=== PATIENT | male | born 1940 | race Caucasian/White ===

== ENCOUNTER 2019-10-22 12:30 | Outpatient (RCR) | payer MEDICARE, SELFPAY ==
--- NOTE | 2019-09-26 15:42 | PTOPEVAL ---
INITIAL PHYSICAL THERAPY EVALUATION and PLAN OF CARE Thank you for referring Toñito to [facility]. He will be seen in PT 2x/wk x 4 wks. Please review, sign, date and return this plan of care RADHA. I agree with and certify that the following plan of care is medically necessary. Referring Physician Date Admitting Provider: Attending Provider: Geo Najera, Referring Provider: *PT Outpatient Evaluation Start: 09/26/19 12:34 Freq: Status: Active Protocol: Document 09/26/19 12:34 SARAH (Rec: 09/26/19 13:55 SARAH [email or web address]) Therapy Assessment Status Assessment Status Assessment Status Evaluation Outpatient Past Medical History Neurological History Hx Neurological Disorders No Significant History Cardiovascular History Hx Hypertension Yes Respiratory History Hx Respiratory Disorders No Significant History Gastrointestinal History Hx Gastrointestinal Disorders No Significant History Genitourinary History Hx Renal Disease Yes: stage IV Hx Other Genitourinary Disorders Yes: takes med for bladder control Musculoskeletal History Hx Back Pain Yes Endocrine History Hx Endocrine Disorders No Significant History HEENT History Hx Cataracts Yes Other History Hx Other Surgeries Yes: bilat hernia surgeries Evaluation Information Problem Diagnosis lumbar stenosis Onset worsened last 6 months Subjective Information has had back issues x 20 years Query Text:As Reported By Patient/ - recently began to have leg Family symptoms. When up on feet doesn't feel steady - will feel like he could fall forward or backwards. Uses cane for stability. Sleeping - needs to wear wool socks and gloves for hands to keep them warm - sleeps better. Mornings - hard to get up, takes 1/2 hour to loosen up - does better as day goes on. Sitting for a period of time - 2-3 hours - hard to move afterwards. Standing - without a cane - 10-15 min - with cane - for awhile - needs to be leaning against something. Prior Level of Function Activity Level (Last 3 Months) Occupation retired Hand Dominance Right Medications Home Meds (Include: OTC, RX, Vitamins, myrbetriq, allopurinol,
--- NOTE | 2019-10-22 15:11 | PTOPEVAL ---
PHYSICAL THERAPY DISCHARGE NOTE Thank you for referring Toñito to [facility]. He has attended 8 treatments, progression was made towards goals set, and he is ready to transition to HEP. I agree with Toñito's discharge from physical therapy. Referring Physician Date Admitting Provider: Attending Provider: Geo Najera, MD Referring Provider: *PT Outpatient Evaluation Start: 09/26/19 12:34 Freq: Status: Active Protocol: Document 10/22/19 12:30 SARAH (Rec: 10/22/19 15:11 SARAH [email or web address]) Therapy Assessment Status Assessment Status Assessment Status Discharge Evaluation Information Problem Subjective Information Toñito reports that he still Query Text:As Reported By Patient/ has some discomfort with his Family knees but episode of increased pain after ex on 10/15/19 has gone away. He reports doing HEP. He is able to tell the increased strength in L LE. Pain Assessment Timing of Pain Assessment Timing of Pain Assessment Assessment Pain Scale Pain Scale Used Numeric (1 - 10) Self Report Pain Assessment Lower Posterior Back Reported Pain Level 0 Radicular Pain Location pins and needle sensation in feet in still present-has been there x 3 years Current Pain Intensity 0 Lowest Pain Intensity 0 Greatest Pain Intensity 5 Pain Score Pain Score 0: Self Report Cervical and Lumbar ROM Lumbar ROM Lumbar Flexion (0-90) 35 Query Text:Active in Degrees Lumbar Extension (0-40) 10 Query Text:Active in Degrees Lumbar Lateral Flexion Right (0-40) 10 Query Text:Active in Degrees Lumbar Lateral Flexion Left (0-40) 10 Query Text:Active in Degrees Lower Extremity Muscle Strength Testing General Lower Extremity Strength Gross Lower Extremity Strength hip flexor strength - 3+/5 bilat anterior tibialis - L 4/5 R 3+/5 peroneals - L 4/5 R 3+/5 Muscle Length Testing Muscle Length Testing Left Hamstring Length -43 Query Text:(90 - 90 Position) Right Hamstring Length -44 Query Text:(90 - 90 Position) Balance Assessment Time Up Go (TUG) Assistive Devices None Comments 21.47 sec 5 Time Sit to Stand Time in Seconds 26.40 5 Time Sit to Stand Comments use of hands required although Query Text:Normative Data: If Greater he tried to minimize how much Than 15 Seconds, 74% Increase Risk for he used his hands Recurrent Falls
== END 2019-10-23 11:31 | disposition home or self-care (01) ==
LOC: ANHHIPT 12:30
PROVIDERS: PCP Internal Medicine; Visit Provider Internal Medicine
DX: M48.00 Spinal stenosis, site unspecified (principal)
CPT/HCPCS: 97110; 97140; 97162

== ENCOUNTER 2020-05-16 10:00 | Outpatient (RCR) | payer MEDICARE, SELFPAY ==
--- NOTE | 2020-05-02 12:13 | PTOPEVAL ---
INITIAL PHYSICAL THERAPY EVALUATION and PLAN OF CARE Thank you for referring Toñito Valdes to [facility].? Toñito is scheduled to be seen for physical therapy? 2x/week for 4 weeks. Please review, sign, date and return this plan of care RADHA. I agree with and certify that the following plan of care is medically necessary. Referring Physician Date Admitting Provider: Attending Provider: Geo Najera, Referring Provider: *PT Outpatient Evaluation Start: 05/02/20 10:39 Freq: Status: Active Protocol: Document 05/02/20 10:40 SARAH (Rec: 05/02/20 12:02 SARAH [email or web address]) Therapy Assessment Status Assessment Status Assessment Status Evaluation Outpatient Past Medical History Past Medical History Source of Past Medical History Recalled from Previous Visit, Confirmed with Patient/Family Neurological History Hx Other Neurological Disorders Yes: bilat foot neuropathies Cardiovascular History Hx Hypertension Yes Respiratory History Hx Respiratory Disorders No Significant History Gastrointestinal History Hx Gastrointestinal Disorders No Significant History Genitourinary History Hx Renal Disease Yes: stage IV - peritoneal dialysis now Hx Other Genitourinary Disorders Yes: takes med for bladder control Musculoskeletal History Hx Back Pain Yes Endocrine History Hx Endocrine Disorders No Significant History HEENT History Hx Cataracts Yes: had surgery Other History Hx Other Medical Conditions Yes: Raynauds - both hands Hx Other Surgeries Yes: bilat hernia surgeries Evaluation Information Problem Diagnosis LBP Onset long standing - worse since February 2020 Subjective Information Will have increased back pain Query Text:As Reported By Patient/ - shooting pain, will travel Family around the lower back. Can happen at any time. Last few days pain hasn't been as bad. Pain will travel into R buttock, proximal thigh - more so that L. Generally decrease in activity level. Began back in February with insertion of catheter for peritoneal dialysis - complications - was placed into ICU, then needed to go to dialysis center 3x/wk for awhile. Now able to do dialysis at home. Able to mow
--- NOTE | 2020-05-21 08:37 | PCPTNOTE ---
Patient's called & cancelled scheduled appointment this date due to going to see a specialist in regards to his leg pain.
--- NOTE | 2020-05-23 08:32 | PCPTNOTE ---
Patient called & cancelled scheduled appointment this date due to not feeling well after increased testing yesterday.
--- NOTE | 2020-05-26 08:10 | PCPTNOTE ---
Patient called & cancelled his last 2 scheduled appointment this date due to ongoing illness. Will d/c from PT.
--- NOTE | 2020-05-26 08:12 | PCPTNOTE ---
PHYSICAL THERAPY DISCHARGE NOTE Admitting Provider: Attending Provider: Geo Najera, Patient:Toñito Valdes Date of :1940 Toñito has not returned for any further treatments since 05/16/2020 due to worsening general health issues, therefore he will be discharged at this time. Toñito?s initial visit was on 05/02/2020 10:30 and he had a total of 5 visits. The goals have been partially met. Thank you for referring Toñito to [facility]. Please review, sign, date and return this discharge summary RADHA. I have been updated about Toñito's current status and I agree with discharge from the above service at this time. Referring Physician Date
== END 2020-06-18 09:05 | disposition home or self-care (01) ==
LOC: ANHHIPT 10:00
PROVIDERS: PCP Internal Medicine; Visit Provider Internal Medicine
DX: M54.5 Low back pain (principal)
CPT/HCPCS: 97110; 97140; 97162

== ENCOUNTER 2020-06-06 07:27 | Inpatient (IN) | payer MEDICARE, SELFPAY ==
[2020-06-06] VITALS (26 sets, daily range): BP systolic 92–193; BP diastolic 46–156; PULSE 88–137; RESP 14–24; TEMP 36.5–37.6; O2SAT 73–98; BMI 23.9
--- NOTE | ~2020-06-06 | CT_ITS ---
EXAMINATION:CT chest wo con DATE: 06/06/2020 11:25 INDICATION: Abnormal chest radiograph. TECHNIQUE: Computed tomography (CT) of the chest was performed without intravenous contrast. Automate d exposure control and iterative reconstruction technique were employed. The dose-length product (DLP ) was 381.26 mGy-cm. COMPARISON: Chest single view 06/06/2020 FINDINGS: There is asymmetric volume loss of right hemithorax with rightward displacement of the medi astinum. There is mild atelectasis bilaterally. A calcified left lung nodule and calcified left hilar lymph node are consistent with old granulomatous disease. There is mild elevation of right hemidiaph ragm. No pleural effusion. Cardiomegaly is noted. There are coronary artery calcifications. There are calcifications of aortic valve. No pericardial effusion. There is ectasia of ascending aorta measuri ng 4.8 cm. There is enlargement of the central pulmonary arteries, consistent with pulmonary arterial hypertension. There is a small sliding hiatal hernia. There are cysts in the liver measuring up to 1 .7 cm. There are widespread arterial calcifications. Bilateral gynecomastia is noted. A right interna l jugular central venous catheter is seen with tip in right atrium. There are multiple old healed david ateral rib fractures. There is mild chronic height loss of multiple vertebral bodies. There is mild t horacic spondylosis. IMPRESSION: 1. Cardiomegaly. 2. 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 3. Small sliding hiatal hernia. Reviewed, dictated and finalized at location A.
--- NOTE | ~2020-06-06 | CT_ITS ---
EXAMINATION: CT facial bones wo con DATE: 06/06/2020 08:21 INDICATION: Status post fall. Facial pain. TECHNIQUE: Computed tomography (CT) of the maxillofacial bones was performed without intravenous cont rast. The dose-length product was 301.47 mGy-cm. Automated exposure control and iterative reconstruct ion technique were employed. COMPARISON: None FINDINGS: Study significantly limited by motion artifact. Paranasal sinuses are pneumatized. No defin ite blowout fracture. There are symmetric degenerative changes of the temporomandibular joints. Signi ficantly limited evaluation of the mandible for fracture due to motion. No depressed skull fractures. No significant soft tissue abnormality. Orbits are symmetric. There is atherosclerosis of the caroti d arteries. There is anterolisthesis at C2-3, likely degenerative. IMPRESSION: 1. No grossly evident facial fractures. Limited study. Reviewed, dictated and finalized at location B.
--- NOTE | ~2020-06-06 | CT_ITS ---
EXAMINATION: CT brain wo con DATE: 06/06/2020 08:20 INDICATION: Injured mental status after fall TECHNIQUE: Computed tomography (CT) of the abdomen and pelvis was performed without intravenous contr ast. The dose-length product was 756.67 mGy-cm. Automated exposure control and iterative reconstructi on technique were employed. COMPARISON: None. FINDINGS: Generalized atrophy. There are scattered moderate periventricular and subcortical white mat ter changes, most likely related to small vessel ischemic disease (microangiopathy). No midline shift . No acute intracranial hemorrhage, infarction, mass or mass effect. No depressed skull fractures. Pa ranasal sinuses and mastoids are pneumatized. Study limited by motion artifact. IMPRESSION: 1. No acute intracranial abnormality. 2: Chronic age-related findings. Reviewed, dictated and finalized at location B.
--- NOTE | ~2020-06-06 | XR_ITS ---
EXAMINATION: XR chest 1V DATE: 06/06/2020 08:24 INDICATION: Weakness. Transient alteration of awareness. TECHNIQUE: frontal view of the chest was obtained. COMPARISON: None FINDINGS: Large-bore dual-lumen right internal jugular central venous likely dialysis catheter with distal tip projecting over the right atrium. Enlarged cardiac silhouette which is centered to the right of the s pine. Atherosclerotic calcification along the tortuous left sided aorta. Enlarged central pulmonary a rteries consistent with pulmonary arterial hypertension. Calcified nodules in the left midlung zone. Mild left basilar opacities and favor atelectasis over pneumonia. No pulmonary edema, pleural effusio n or pneumothorax. IMPRESSION: 1. Mild left basilar opacities and favor atelectasis over pneumonia. 2. Enlarged cardiac silhouette which is centered on the right which could be related to dextrocardia, right atrial enlargement, enlarged right paracardial fat pad, pericardial cyst or other mass. Correl ate with any prior outside imaging. If indicated this can be further evaluated with chest CT. 3. Enlarged central pulmonary arteries which can be seen with pulmonary arterial hypertension. Reviewed, dictated and finalized at location A. IMPRESSION: 1. Mild left basilar opacities and favor atelectasis over pneumonia. 2. Enlarged cardiac silhouette which is centered on the right which could be re lated to dextrocardia, right atrial enlargement, enlarged right paracardial fat pad, pericardial cyst or other mass. Correlate with any prior outside imaging. If indicated this can be further evaluated with chest CT. 3. Enlarged central pulmonary arteries which can be seen with pulmonary arteria l hypertension.
--- NOTE | ~2020-06-06 | US_ITS ---
EXAMINATION: US art doppler w press LE BI EXAM DATE: 06/06/2020 16:28 INDICATION: Weak pedal pulses . The toenails, ulcers on right calf. TECHNIQUE: Segmental Doppler arterial waveforms of the lower extremity arteries were obtained. How er, the exam was unable to be completed, reportedly patient declined to participate. FINDINGS: No pressures obtained. Monophasic waveforms with low peaks bilaterally. IMPRESSION: Incomplete exam. Reviewed, dictated and finalized at location A. IMPRESSION: Incomplete exam.
--- NOTE | 2020-06-06 07:55 | ECG_ITS ---
Measurements Intervals [place] Rate: 126 P: VT: 0 QRS: 44 QRSD: 97 T: 61 QT: 310 QTc: 450 Interpretive Statements ATRIAL FIBRILLATION WITH RAPID VENTRICULAR RESPONSE VENTRICULAR PREMATURE COMPLEX LOW QRS VOLTAGE IN LIMB LEADS BASELINE ARTIFACT- I, II, III, AVR, AVL, AVF, V1-V3 ABNORMAL ECG Electronically Signed On 06-06-2020 8:52:24 CDT by Roberto Magana D.O.
--- NOTE | 2020-06-06 08:04 | ED.GENADULT ---
HPI - General Adult General Chief complaint: Altered Mental Status Stated complaint: AMS, lethargic Time Seen by Provider: 06/06/20 07:35 History of Present Illness HPI narrative: Patient is a 79-year-old male who presents to the ER with altered mental status and fall. Patient was sitting on the side of his bed this morning when he fell forward onto his face. No loss of consciousness per family. Patient is alert and oriented to self and that he is at a hospital. He does not know the date or any additional specifics about what is going on. Daughter reports that patient was supposed to start hemodialysis today with Dr. Sweet. Up until now he has been receiving peritoneal dialysis and his last dialysis was 06/04/2020. Patient has had a long course since being put on peritoneal dialysis in February. He has been become increasingly weak and confused but is markedly worse today. Patient has history of alcoholism and withdrawal. His renal disease is related to uncontrolled hypertension. She takes Coumadin for A. fib. Related Data Home Medications Medication Instructions Recorded Confirmed Super B Complex 1 cap PO DAILY 06/06/20 06/06/20 Vitamin D3 2,000 unit PO DAILY 06/06/20 06/06/20 allopurinol 100 mg PO DAILY 06/06/20 06/06/20 calcitriol 0.5 mcg PO DAILY 06/06/20 06/06/20 docusate sodium 100 mg PO BID 06/06/20 06/06/20 loratadine [Claritin] 10 mg PO DAILY 06/06/20 06/06/20 metoprolol succinate 50 mg PO DAILY 06/06/20 06/06/20 warfarin [Coumadin] 3 mg PO DAILY 06/06/20 06/06/20 Allergies Allergy/AdvReac Type Severity Reaction Status Date / Time latex Allergy Rash Verified 06/06/20 12:15 pravastatin Allergy Unknown Verified 06/06/20 12:16 Review of Systems Review of Systems: ROS unobtainable: Yes unobtainable due to medical condition PMF Past Medical History Medical History (Updated 06/06/20 @ 17:48 by Koko Branch MD) Alcoholism quit drinking February of this year Atrial fibrillation End stage renal disease Gout Hemodialysis patient Hypertension Surgical History Surgical History Peritoneal dialysis catheter in place Family History Family History (Updated 06/06/20 @ 14:00 by Reva Ludwig NP) Mother Cancer Sibling Cancer Father of unknown cause he when the patient was 9 years old Social History Social History (Updated 06/06/20 @ 14:02 by Reva Ludwig NP) Social History: he is and lives with his . His daughter and son-in-law are all durable power county attorney for healthcare. The patient is a do not resuscitate. The patient is retired. He used to smoke up until February 12 of this year. He also used to drink heavily until February 12 of this year. Smoking status: Former smoker Alcohol intake: former Alcohol use details: H/o alcoholism Substance use: never Living arrangements: with family Occupation/Education: retired Gender identity (if verbalized by the patient): Male Spiritual care concerns: No Exam Narrative: Exam Narrative: GENERAL: Chronically ill-appearing, well-nourished, and in no acute distress. HEAD: Normocephalic, atraumatic. EYES: PERRL and EOMI. ENT: Mucous membranes moist. Contusion and superficial laceration over the bridge of the nose. Swelling noted. NECK: Supple. CHEST: Clear to auscultation. No respiratory distress. Right-sided tunneled catheter for dialysis. No evidence of infection. HEART: Irregular regular rate and rhythm. Normal peripheral pulses. ABDOMEN: Soft, nontender, nondistended, normal appearing dialysis catheter to the lower abdomen. Evidence of infection.. EXTREMITIES: Normal range of motion. BLE wrapped due to edema. SKIN: Warm, dry. Known calciphylaxis wounds. NEURO: Alert and oriented x 1-2. Course Course Emergency Course: Admit to hospitalist service for further treatment evaluation. Nephrology consulted and will likely plan
--- NOTE | 2020-06-06 08:27 | PC.NURSE ---
Pt returns from CT. Call to lab to attempt blood draw due to pt being difficult stick.
--- NOTE | 2020-06-06 08:52 | PC.NURSE ---
Station Installer And Repairer unsuccessful with lab draw; calling additional resources to attempt.
[2020-06-06] MEDS: dilTIAZem HCl INJ 25 MG/5 ML VIAL 10 MG IV PUSH (08:59)
--- NOTE | 2020-06-06 09:03 | PC.NURSE ---
Secondary crusher foreman at bedside for exam.
[2020-06-06] MEDS: LORazepam INJ (*CRX) 2 MG/ML VIAL 1 MG IV PUSH ×2 (09:08→10:51)
[2020-06-06 09:14] LABS: Basophils Percent Auto 0.3 % (0.2-1.2); Eosinophils Percent Auto 0.4 % (0-4.4); Hematocrit 31.6 % (42.0-52.0); Hemoglobin 10.1 g/dL (14.0-18.0); Immature Granulocyte Absolute 0.03 K/mm3 (0.00-0.031); Immature Granulocyte Percent A 0.4 % (0-0.5); Lymphocytes Absolute Auto 0.63 K/mm3 (0.9-3.2); Lymphocytes Percent Auto 8.8 % (18.3-44.2); Mean Corpuscular Hemoglobin 29.7 pg (26-34); Mean Corpuscular Volume 92.9 fl (80-100); Mean Platelet Volume 8.9 fl (7.4-10.4); Monocytes Absolute Auto 1.1 K/mm3 (0.1-0.6); Monocytes Percent Auto 15.9 % (2.6-8.5); Neutrophils Absolute Auto 5.3 K/mm3 (1.3-6.7); Neutrophils Percent Auto 74.2 % (45.5-73.1); Platelet Count Result 409 k/mm3 (150-375); Red Cell Distribution Width 16.3 % (11.5-14.5); White Blood Count 7.2 K/mm3 (4.5-10.0)
--- NOTE | 2020-06-06 09:15 | PC.NURSE ---
Pt extremely restless, moving around on stretcher, attempting to bite his hands, pt oriented to name and birthdate but thinks he's at home. Yells let me go, get away! frequently attempting to get out of bed. Daughter at bedside is good at comforting. Dr. Branch aware.
[2020-06-06 09:24] LABS: INR 2.8; Prothrombin Time 28.9 Seconds (11.1-14.7)
[2020-06-06 09:25] LABS: Partial Thromboplastin Time 64.9 SECONDS (22.3-36.8)
[2020-06-06 09:27] LABS: Alanine Aminotransferase 23 U/L (4-50); Albumin Level 3.4 g/dL (3.5-5.1); Alkaline Phosphatase 67 U/L (38-126); Anion Gap 19 mmol/L (8-16); Aspartate Amino Transferase 38 U/L (17-59); Bilirubin,Total 0.5 mg/dL (0.2-1.3); Blood Urea Nitrogen 78 mg/dL (9-20); Calcium 9.7 mg/dL (8.4-10.2); Carbon Dioxide 25 mmol/L (22-30); Chloride 88 mmol/L (98-107); Estimated CRCL calculation 6 ml/min; Estimated Glomerular Filt Rate 4; Glucose 84 mg/dL (75-110); Potassium 4.4 mmol/L (3.4-5.0); Sodium 132 mmol/L (137-145)
[2020-06-06 09:28] LABS: Lactic Acid Reflex 1.5 mmol/L (0.7-2.1)
[2020-06-06 09:39] LABS: Add Urine Microscopic? YES; Appearance Urine Cloudy (Clear); Bacteria Urine 2+ /hpf; Bilirubin Urine Negative (Negative); Blood Urine 1+ (Negative); Color Urine Yellow (Yellow); Glucose Urine UA 3+ mg/dL (Negative); Ketones Urine Negative (Negative); Leukocyte Esterase Ur Negative LEU/UL (Negative); Mucus Urine Rare /lpf; Nitrate Urine Negative (Negative); Protein Urine 2+ mg/dL (Negative); Specific Grav Ur 1.024 (1.001-1.035); Squamous Epithelial Cell Urine Rare /hpf (Few); Urobilinogen Urine Negative mg/dL (<2.0)
--- NOTE | 2020-06-06 10:05 | PC.NURSE ---
Pt appears less restless after ativan. Awaiting disposition. Daughter updated to such.
--- NOTE | 2020-06-06 11:17 | PC.NURSE ---
Pt to CT via stretcher. Pt appears to be sleeping after 2nd ativan ivp but continues to pull at monitor cords. Awaiting bed assignment.
--- NOTE | 2020-06-06 11:42 | PC.NURSE ---
Floor unable to take report at present time. States will call back.
--- NOTE | 2020-06-06 12:01 | ADMGEN ---
This patient, Toñito Valdes, was admitted to Medical Room 244-. Patient/family oriented to hospital policies and general routines including ID bracelet, bed and alarms, visiting hours, pain management, procedures, bathroom and other care routines, personal items, smoking policy, room service/diet, and visiting hours. Information on how to activate the Rapid Response Team has been discussed. Patient/Family are encouraged to report perceived risks to care and to ask questions if they do not understand what they are told or what they should do.
[2020-06-06] MEDS: METOPROLOL TARTRATE INJ 5 MG/5 ML VIAL IV PUSH ×3 (13:25→20:40)
--- NOTE | 2020-06-06 13:47 | PM.IMHP ---
H&P: HPI History of Present Illness Date/Time: 06/06/20 13:47 Chief complaint: fall,volume overload,ams,esrd Narrative: Toñito Valdes is a 79 year old male Has end-stage renal disease. The daughter tells me that he has been on dialysis since February 12 of this year. The patient initially was on hemodialysis but then received did the peritoneal catheter and started peritoneal dialysis. The patient has been confused for the last couple days. His he was not able to take his dialysis for 2 days now. The daughter tells me that he took his medicine yesterday but not today. The patient was not even aware of his own name. The patient did have a CT of his brain today which was read as age-related change but nothing acute. CT of the chest was read as 1. Cardiomegaly. 2. 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 3. Small sliding hiatal hernia. nephrology has been consulted and I believe that the patient is going to dialysis today. The patient does have a PermCath in the right upper chest. His peritoneal dialysis catheter is intact to his abdomen. The patient became combative in the emergency room. He was given Valium and 2 doses of Ativan as well. The patient is nonverbal at this time. I was not able to retrieve any information from the patient. I did call his daughter who is a durable power county attorney for healthcare. The patient is a DNR. Patient is admitted to inpatient for altered mental status changes and end-stage renal disease. He is requiring hemodialysis at this time. Nephrology has been consulted from the emergency room. the daughter also told me that they attempted to set hemodialysis for the patient since he is not able to do the peritoneal dialysis and they took him to [facility] [place] this morning and they were unable to do dialysis due to his lethargy And confusion. Date of service 06/06/2020 Review of Systems Review of Systems: ROS unobtainable: Yes unobtainable due to mental status Constitutional: Constitutional: Reports as per HPI and Reports no additional constitutional complaints Eyes: Eyes: Reports as per HPI and Reports no additional eye complaints ENT: Reports system reviewed and no additional complaints, except as documented and Reports Normal hearing present Cardiovascular: Cardiovascular: Reports no additional cardiovascular complaints Respiratory: Respiratory: Reports no additional respiratory complaints and Reports no additional respiratory complaints Gastrointestinal: Gastrointestinal: Reports as per HPI and Reports no additional gastrointestinal complaints Musculoskeletal: Musculoskeletal: Reports no additional musculoskeletal complaints Integumentary/Breasts: Skin/Breast: Reports system reviewed and no additional complaints, except as docu and Reports as per HPI Neurologic: Reports system reviewed and no additional complaints, except as documented, Reports as per HPI and Reports Normal hearing present Psychiatric: Psychiatric: Reports no additional psychiatric complaints and Reports as per HPI Endocrine: Endocrine: Reports no additional endocrine complaints Hematologic/Lymphatic: Hematologic/Lymphatic: Reports no additional hematologic/lymphatic complaints Allergic/Immunologic: Allergic/Immunologic: Reports no additional allergic/immunologic complaints [facility] Past Medical History Medical History (Updated 06/06/20 @ 14:13 by Reva Ludwig NP) Alcoholism quit drinking February of this year Atrial fibrillation End stage renal disease Gout Hemodialysis patient Hypertension Surgical History Surgical History Peritoneal dialysis catheter in place Family History Family History (Updated 06/06/20 @ 14:00 by Reva Ludwig NP) Mother Cancer Sibling Cancer Father of unknown cause he when the patient was 9 years old Social History Social History (Updated 06/06/20 @ 14:02 by Reva Marvin
[2020-06-06 14:05] LABS: INR 2.9; Prothrombin Time 29.5 Seconds (11.1-14.7)
--- NOTE | 2020-06-06 14:57 | PCOTNOTE ---
Per RN, did not attempt OT eval on this date due to pts current lethargic state. Will attempt again at a later date.
[2020-06-06] MEDS: HEPARIN SODIUM 5,000 UNITS/ML VIAL 5000 UNITS SUB-Q ×2 (15:09→20:41)
--- NOTE | 2020-06-06 15:18 | PCPTNOTE ---
Attempted PT eval at 1500. Sj TEJEDA stated to hold therapy due to pt being sedated and lethargic. Will try again tomorrow.
--- NOTE | 2020-06-06 16:02 | PC.NURSE ---
Patient to ultrasound per bed.
--- NOTE | 2020-06-06 16:29 | PC.NURSE ---
Addendum entered by Jesse Garcia RN 06/06/20 16:40: Spoke with Reva Ludwig NP. Received orders to hold off on ultrasound for now until patient is able to tolerate. Original Note: Patient did not tolerate ultrasound on lower extremities. Called and left voicemail with Reva Ludwig NP.
[2020-06-06] MEDS: LORazepam INJ (*CRX) 2 MG/ML VIAL 0.5 MG IV PUSH (16:49)
--- NOTE | 2020-06-06 18:06 | PM.CNNEP ---
Assessment and Plan Assessment and plan (1) End stage renal disease: Code(s): N18.6 - End stage renal disease Status: Chronic Assessment and Plan: due for HD today but due to number of other more urgent treatments, will plan for tomorrow AM BUN and creatinine elevated -- impaired clearance of uremic toxins to blame for #2 however, he has been on dialysis for at least 3 months so would have assumed improvement by now follow electrolytes, volume status, and clearance (2) Altered mental status: Code(s): R41.82 - Altered mental status, unspecified Status: Acute Assessment and Plan: etiology? related to ESRD or uremia?? -- however, on dialysis x 2 - 3 months infection?? -- follow cultures dementia playing a role? (3) Hypertension: Code(s): I10 - Essential (primary) hypertension Status: Chronic Assessment and Plan: reasonable control follow hemodynamics (4) Atrial fibrillation: Code(s): I48.91 - Unspecified atrial fibrillation Status: Chronic Assessment and Plan: follow for now on chronic anticoagulation Long and extensive discussion (> 20 minutes) with patient's daughter and son regarding their father's clinic status -- I am not sure if all of his issues and problems are solely related to his ESRD; if his overall health has been declining in spite of renal replacement therapy, then one has to consider that maybe his body is shutting down irregardless of all interventions to date. Will have to see if responds to conservative therapy to assess what are next step is interms of more aggressive care versus consideration of comfort care measure as they both agree that their main priority is quality of life. Will continue to follow. History of Present Illness Reason for Consult Consult date: 06/06/20 Reason for consult: end stage renal disease Chief Complaint Chief complaint: fall,volume overload,ams,esrd History of Present Illness Narrative: All of the information I have obtained is from review of the electronic medical record as well as discussion with the patient's daughter at bedside and his son by phone and later on in the waiting room as I am unable to get any history from the patient due to his altered mental status. Mr. Valdes is an unfortunate 79-year-old male with a extensive past medical history including end-stage renal disease on hemodialysis, hypertension, peripheral vascular disease, rheumatoid arthritis, peripheral neuropathy, hyperlipidemia, atrial fibrillation on Coumadin therapy, gastroesophageal reflux disease, and chronic lower extremity ulcers who presented to [facility] emergency room earlier today due to confusion and weakness. The patient presented to his outpatient dialysis center earlier today for his scheduled outpatient hemodialysis treatment. Apparently, his family stated he was more confused than baseline and was somewhat agitated and could not sit still. It was noted earlier today that he was sitting on the side of the bed and he fell forward and injured his face. Furthermore, his family had significant difficulty getting the patient out of the car to even get him into the dialysis center so it was felt that he need to be evaluated in the emergency room given this change in his overall condition. Work-up and evaluation the emergency room demonstrated the patient to be quite confused/encephalopathic although he was hemodynamically stable. He was only oriented to his self but did not know any specifics of why he was even in the emergency room as far as I was told. Routine blood test demonstrated labs consistent with his known history of end-stage renal disease. Further evaluation included a head CT which was not significant for any acute intracranial findings as well as a facial CT which did not demonstrate any type of fractures. Chest x-ray did demonstrate an enlarged cardiac silhouette but no overt infiltrates or
[2020-06-06 21:45] LABS: Hepatitis B Surface Antigen Negative (Negative)
[2020-06-06 22:03] LABS: Hepatitis B Surface Anti Res Negative
[2020-06-07] VITALS (7 sets, daily range): BP systolic 118–144; BP diastolic 68–80; PULSE 78–987; RESP 14–24; TEMP 36.1–37.3; O2SAT 83–100
[2020-06-07] MEDS: GLUCAGON FOR INJ 1 MG VIAL IM
[2020-06-07 00:04] LABS: Alveolar/Arterial O2 Gradient 127.3 mmHg; Base Excess ABG -4.5 mEq/l (+/-2.0); Carboxyhemoglobin 0.3 % THb (0-2.0); Fractional Inspired Oxygen 36 %; HCO3 ABG 18.9 mEq/l (22.0-26.0); Methemoglobin ABG 0.3 %THb (0-1.5); Oxygen Content ABG 15.2 %vol (16.0-22.0); Oxygen Saturation ABG 97.5 % (95.0-100.0); Oxyhemoglobin 95.5 % THb (90.0-100.0); PCO2 ABG 29.4 mmHg (35.0-45.0); PO2 ABG 95.3 mmHg (80.0-100.0); PO2 FiO2 Ratio Arterial Blood 2.65 %; Reduced Hemoglobin 3.9 %THb (0-5.0); Total Hemoglobin 11.2 g/dL (12.0-18.0); pH ABG 7.425 (7.350-7.450)
[2020-06-07 00:07] LABS: Device NASAL CANNULA; Site Drawn RIGHT FEMORAL
--- NOTE | 2020-06-07 00:16 | PM.EVENT ---
Event Note Event Note Event Note: a rapid response was called on 06/06/20 at 2345. The nurse noticed that the patient had a. Apnea and was not responsive. Therefore a rapid response was called. The rapid response team and myself and Dr. buckley head showed up for the rapid response. The patient's blood sugar was reading 15. We then gave the patient an amp of D50. His fingertips were blue and we are unable to register O2 saturation. Dr. buckley and was able to draw ABGs on the patient. Patient started moving around more and was a little more responsive once he got the D50. However we recheck his blood sugar and it was in the 90s and so we gave him IM glucagon. Patient's heart rate is in the 90s any still in the atrial fibrillation. Blood pressure was around 130/90. The patient is a DNR. Will draw more labs please see the rapid response sheet. Please see labs and ABGs. Patient's finger tips are blue and cold and we are unable to obtain a true O2 saturation. However on the arterial blood gases his PO2 was 95.3.
[2020-06-07 00:28] LABS: Glucose Point of Care 150 (65-105)
[2020-06-07 00:28] LABS: Glucose Point of Care < 20 (65-105)
[2020-06-07 00:41] LABS: Glucose Point of Care 97 (65-105)
[2020-06-07 00:51] LABS: Basophils Percent Auto 0.3 % (0.2-1.2); Eosinophils Percent Auto 0.3 % (0-4.4); Hemoglobin 10.3 g/dL (14.0-18.0); Immature Granulocyte Absolute 0.04 K/mm3 (0.00-0.031); Immature Granulocyte Percent A 0.6 % (0-0.5); Lymphocytes Absolute Auto 0.76 K/mm3 (0.9-3.2); Lymphocytes Percent Auto 10.9 % (18.3-44.2); Mean Corpuscular HGB Conc 32.2 g/dl (32-36); Mean Corpuscular Hemoglobin 29.9 pg (26-34); Mean Corpuscular Volume 92.8 fl (80-100); Mean Platelet Volume 9.5 fl (7.4-10.4); Monocytes Absolute Auto 0.9 K/mm3 (0.1-0.6); Monocytes Percent Auto 12.4 % (2.6-8.5); Neutrophils Absolute Auto 5.3 K/mm3 (1.3-6.7); Neutrophils Percent Auto 75.5 % (45.5-73.1); Platelet Count Result 409 k/mm3 (150-375); Red Blood Count 3.45 M/mm3 (4.6-6.20); Red Cell Distribution Width 16.3 % (11.5-14.5)
[2020-06-07 00:54] LABS: Anion Gap 19 mmol/L (8-16); Blood Urea Nitrogen 90 mg/dL (9-20); Calcium 9.4 mg/dL (8.4-10.2); Carbon Dioxide 24 mmol/L (22-30); Chloride 88 mmol/L (98-107); Estimated CRCL calculation 5 ml/min; Estimated Glomerular Filt Rate 4; Glucose 160 mg/dL (75-110); Potassium 4.4 mmol/L (3.4-5.0); Sodium 131 mmol/L (137-145)
[2020-06-07] MEDS: DEXTROSE 50% 25 GM/50 ML SYRINGE IV PUSH ×4 (01:06→05:45)
[2020-06-07] MEDS: GLUCOSE ORAL GEL 15 GM OF GLUCSE IN 37.5 GM TUBE PO (01:18)
[2020-06-07 01:38] LABS: Glucose Point of Care 85 (65-105)
[2020-06-07] MEDS: DEXTROSE 10% 500 ML 20 ML IV CONT (01:40)
[2020-06-07 03:48] LABS: Glucose Point of Care 52 (65-105)
[2020-06-07 04:05] LABS: Glucose Point of Care < 20 (65-105)
[2020-06-07 04:05] LABS: Glucose Point of Care 162 (65-105)
[2020-06-07 04:15] LABS: Glucose 172 mg/dL (75-110); Lactic Acid Reflex 1.3 mmol/L (0.7-2.1)
[2020-06-07 04:48] LABS: Alanine Aminotransferase 22 U/L (4-50); Albumin Level 2.9 g/dL (3.5-5.1); Alkaline Phosphatase 59 U/L (38-126); Anion Gap 19 mmol/L (8-16); Aspartate Amino Transferase 50 U/L (17-59); Bilirubin,Total 0.6 mg/dL (0.2-1.3); Blood Urea Nitrogen 92 mg/dL (9-20); CRP 18.6 mg/dL (<1.0); Calcium 9.3 mg/dL (8.4-10.2); Carbon Dioxide 24 mmol/L (22-30); Chloride 88 mmol/L (98-107); Estimated CRCL calculation 5 ml/min; Estimated Glomerular Filt Rate 4; Glucose 177 mg/dL (75-110); Magnesium 2.1 mg/dL (1.6-2.3); Potassium 4.1 mmol/L (3.4-5.0); Sodium 131 mmol/L (137-145)
[2020-06-07] MEDS: HEPARIN SODIUM 5,000 UNITS/ML VIAL 5000 UNITS SUB-Q (05:39)
[2020-06-07 06:18] LABS: Glucose Point of Care 344 (65-105)
[2020-06-07 06:18] LABS: Glucose Point of Care 21 (65-105)
[2020-06-07 06:18] LABS: Glucose Point of Care 24 (65-105)
[2020-06-07 06:24] LABS: Glucose Point of Care 174 (65-105)
--- NOTE | 2020-06-07 06:46 | PC.NURSE ---
This patient, Toñito Valdes, was received from [facility] on 06/07/20 at 0600. Personal belongings list checked and signed. Patient/family oriented to unit policies and routines
[2020-06-07 07:35] LABS: Glucose Point of Care 142 (65-105)
[2020-06-07 08:24] LABS: Hepatitis B Surface Anti Res Negative
[2020-06-07 08:32] LABS: HAV RESULT Negative (Negative); Hepatitis B Core IgM Result Negative (Negative); Hepatitis B Surface Antigen Negative (Negative); Hepatitis C Virus Antibody Negative (Negative)
--- NOTE | 2020-06-07 08:34 | PCOTNOTE ---
Attempted OT evaluation this date; per RN they will be withdrawing care at this time. Pt. is unresponsive and does not follow commands. Will DC OT evaluation at this time.
--- NOTE | 2020-06-07 08:35 | PCPTNOTE ---
Attempted PT eval this a.m. Spoke with RN prior to seeing patient - pt is still lethargic and care is being withdrawn at this time. Not appropriate for PT eval. Will d/c PT orders. If pt does become appropriate for PT in the future, please reorder.
[2020-06-07 09:31] LABS: Glucose Point of Care 129 (65-105)
[2020-06-07] MEDS: MORPHINE SULFATE (*CRX) 4 MG/ML INJ IV PUSH (11:54)
--- NOTE | 2020-06-07 14:56 | PC.NURSE ---
This patient, Toñito Valdes, was transferred to [ [facility]] on 06/07/20 at 1440. Personal belongings sent with patient. Report given to [jony ]. Appropriate documentation sent with patient.
--- NOTE | 2020-06-07 18:41 | PM.DS ---
DS: Admitting Diagnosis Admitting Diagnosis Admitting Diagnosis: fall,volume overload,ams,esrd DS: Discharge Diagnosis Discharge Diagnosis (1) Encephalopathy: Code(s): G93.40 - Encephalopathy, unspecified Status: Acute Assessment and Plan: I spoke with the daughter and son-in-law who would prefer to have a meeting with the janitor caretaker concerning patient's placement. They stated that he just has not mentally been himself since February. they agreed to meet with hospice and agreed to inpatient hospice. (2) Hypertension: Code(s): I10 - Essential (primary) hypertension Status: Chronic Assessment and Plan: IV Lopressor. Initially but the seed with hospice (3) Hemodialysis patient: Code(s): Z99.2 - Dependence on renal dialysis Status: Chronic Assessment and Plan: Nephrology has been consulted. Patient was doing peritoneal dialysis at home but was unable to do it the last couple days. He initially was set up to go to dialysis center in [place] in the room unable to do his dialysis outpatient today. nephrology thought he was too ill to proceed with hemodialysis and family decided on hospice (4) Atrial fibrillation: Code(s): I48.91 - Unspecified atrial fibrillation Status: Chronic Assessment and Plan: warfarin discontinued on entering hospice DS: Summary Hospital Course Hospital Course: 79-year-old white male with chronic AFib and chronic renal failure who has been undergoing peritoneal dialysis. He was admitted for initiation of hemodialysis and altered mental status. encephalopathy could be uremic in nature with no other definite etiologies. 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 Patient became less and less responsive after admission. He was hypo glycemic and had to have glucose infusion. After discussion with family They decided that they would prefer him to be placed in comfort care and agreed to inpatient hospice. Time Spent with Patient Time attestation: Total time spent providing and/or coordinating discharge services: 35 minutes Exam Narrative: Exam Narrative: condition on discharge blood pressure 114/80 pulse is 90 irregular respirations 14 per minute with periods of apnea pupils are pinpoint slightly reactive lungs appear clear CV irregular no murmurs abdomen soft nontender extremities without edema distal pulses decreased but 1+ neuro not responding to verbal stimuli condition is grave at the time of discharge into inpatient hospice. DS: Data Data Completed and Pending Labs on day of discharge: Labs from last 24 hours 06/07/20 06/07/20 06/07/20 09:05 07:31 06:18 WBC RBC Hgb Hct MCV MCH MCHC RDW Plt Count MPV Immature Gran % (Auto) Neut % (Auto) Lymph % (Auto) [place] % (Auto) Eos % (Auto) Baso % (Auto) Lymph # (Auto) [place] # (Auto) Eos # (Auto) Baso # (Auto) Abs Immat Gran (auto) Absolute Neuts (auto) Absolute Nucleated RBC Nucleated RBC % Puncture Site ABG pH ABG pCO2 ABG pO2 ABG PO2/FiO2 Ratio ABG HCO3 ABG O2 Saturation ABG O2 Content ABG Base Excess A-a Gradient Oxyhemoglobin Carboxyhemoglobin Methemoglobin Reduced Hemoglobin Total Hemoglobin O2 Delivery Device O2 Liters/Min FiO2 Sodium Potassium Chloride Carbon Dioxide Anion Gap BUN Creatinine Estim Creat Clear Calc Estimated GFR Glucose POC Capillary Glucose 129 H 142 H 174 H Lactic Acid Calcium Magnesium Total Bilirubin AST ALT Alkaline Phosphatase C-Reactive Protein Total Protein Albumin TSH (Reflex) Hepatitis A IgM Ab Hep Bs Antigen Hep Bs Antibody Hep B Core IgM Ab Hepatitis C Ab Screen 06/07/20 06/07/20 06/07/20 06:10 05:52 05:46 WBC RBC Hgb Hct M
== END 2020-06-07 13:30 | disposition hospice, inpatient (51) | DRG 70 ==
LOC: ANHED 07:58 → ANH2MED 12:06 → ANHIMU 06-10 12:02
PROVIDERS: Family Medicine; Internal Medicine Nephrology; Nurse Practitioner; Admitting Provider Family Medicine; Emergency Provider Emergency Medicine; PCP Internal Medicine; Visit Provider Internal Medicine
DX: G93.40 Encephalopathy, unspecified (principal); N18.6 End stage renal disease; I12.0 Hypertensive chronic kidney disease with stage 5 chronic kidney disease or end stage renal disease; E83.59 Other disorders of calcium metabolism; Z99.2 Dependence on renal dialysis; I48.91 Unspecified atrial fibrillation; E16.2 Hypoglycemia, unspecified; Z66 Do not resuscitate; M10.9 Gout, unspecified; I73.9 Peripheral vascular disease, unspecified; M06.9 Rheumatoid arthritis, unspecified; G62.9 Polyneuropathy, unspecified; E78.5 Hyperlipidemia, unspecified; K21.9 Gastro-esophageal reflux disease without esophagitis; W06.XXXA Fall from bed, initial encounter; Z28.21 Immunization not carried out because of patient refusal; Z79.01 Long term (current) use of anticoagulants; Z79.899 Other long term (current) drug therapy
CPT/HCPCS: 36415; 36600; 70450; 70486; 71045; 71250; 80048; 80053; 80074; 81001; 82375; 82805; 82947; 83050; 83605; 83735; 84443; 85025; 85610; 85730; 86140; 86706; 87040; 87086; 87340; 93005; 93923; 96374; 96375; 96376; 99285; A9270; G0378; J1610; J1644; J2060; J2270

== ENCOUNTER 2020-06-07 13:31 | HOS | payer OTHER, MEDICARE, SELFPAY ==
[2020-06-07 13:31] VITALS: BMI 24.6
[2020-06-07 13:58] VITALS: BMI 24.6
--- NOTE | 2020-06-07 14:30 | PC.NURSE ---
This patient, Toñito Valdes, was received from IMU on 06/07/20 at 1430. Patient/family oriented to unit policies and routines. Patient unresponsive, resp even and unlabored. O2 on at 1l/nc. heels elevated off bed.
[2020-06-07] MEDS: HYDROmorphone HCL INJ (*CRX) 1 MG/ML SYR IV PUSH (19:34)
[2020-06-08] MEDS: HYDROmorphone HCL INJ (*CRX) 1 MG/ML SYR IV PUSH ×3 (06:54→18:58)
--- NOTE | 2020-06-08 11:36 | PM.IMHP ---
H&P: HPI History of Present Illness Date/Time: 06/08/20 11:36 Chief complaint: ESRD Narrative: Mr. Valdes is an unfortunate 79-year-old male with a extensive past medical history including end-stage renal disease on hemodialysis, calciphylaxis, hypertension, peripheral vascular disease, rheumatoid arthritis, peripheral neuropathy, hyperlipidemia, atrial fibrillation on Coumadin therapy, gastroesophageal reflux disease, and chronic lower extremity ulcers who presented to [facility] emergency room referred from his dialysis center due to weakness and confusion. He has been more confused and eating less for the past 3 months. His appetite has been waning and his periodic confusion has become more pronounced. He did not get around independently due to neuorpathy, PAD, and nonhealing LE ulcers. His wound clinic MD recently made the diagnosis of calciphylaxis. Prior to his decline, he was oriented x3 with a PPS of 70. Work-up and evaluation the emergency room demonstrated the patient to be confused/encephalopathic although he was hemodynamically stable. He was only oriented to person only. Labs were consistent with his known history of end-stage renal disease. Further evaluation included a head CT which was not significant for any acute intracranial findings as well as a facial CT which did not demonstrate any type of fractures. Chest x-ray did demonstrate an enlarged cardiac silhouette but no overt infiltrates or significant pulmonary effusion/congestion. Due to his worsened encephalopathy as well as his weakness and agitation, he was admitted the hospital for further evaluation and therapy and the likelihood of possible placement since his and his family have been having difficulty taking care of him. In the ED, he received 4mg morphine and 1mg of lorazepam with only brief relief of his symptoms. After 1mg IV hydromorphone, he remained comfortable all night. Hx was obtained by revewing his records and talking with his two daughters at bedside. Review of Systems Review of Systems: ROS unobtainable: Yes unobtainable due to medical condition PMFSH Past Medical History Medical History (Updated 06/08/20 @ 12:26 by Mervin Wiley MD) Alcoholism Calciphylaxis Chronic atrial fibrillation, unspecified ESRD (end stage renal disease) on dialysis Gout Hypertension, essential Peripheral arterial occlusive disease Peripheral neuropathy, idiopathic Surgical History Surgical History (Updated 06/08/20 @ 12:22 by Mervin Wiley MD) Status post insertion of hemodialysis catheter Peritoneal and hemodialysis Family History Family History Other Family history of arthritis Hypertension Social History Social History (Updated 06/08/20 @ 12:23 by Mervin Wiley MD) Social History: Lives with spouse. Retired. Smoking status: Former smoker Smoking end date: 08/15/90 Alcohol intake: former Alcohol use details: Quit 02/2020 Substance use: never Living arrangements: with family Occupation/Education: retired Spiritual care concerns: Yes (Faith) Meds Home Medications and Allergies Home Medications Medication Instructions Recorded Confirmed Type allopurinol 100 mg PO DAILY 06/07/20 06/07/20 History calcitriol 0.5 mcg PO DAILY 06/07/20 06/07/20 History cholecalciferol (vitamin D3) 50 mcg PO DAILY 06/07/20 06/07/20 History docusate sodium [Colace] 100 mg PO BID 06/07/20 06/07/20 History loratadine [Claritin] 10 mg PO DAILY 06/07/20 06/07/20 History metoprolol succinate 50 mg PO DAILY 06/07/20 06/07/20 History vitamin B complex [Super B Complex] 1 cap PO DAILY 06/07/20 06/07/20 History warfarin 3 mg PO DAILY 06/07/20 06/07/20 History Allergies Allergy/AdvReac Type Severity Reaction Status Date / Time No Known Allergies Allergy Mild Unverified 04/03/03 10:55 latex Allergy Unknown Verified 04/11/13 11:06 TAPE Allergy Mild Uncod
[2020-06-08 22:00] VITALS: BP 153/72; PULSE 72; RESP 20; TEMP 36.6; O2SAT 81
--- NOTE | 2020-06-08 22:17 | PC.NURSE ---
Family refused to allow patient to be disturbed for obtaining vital signs.
[2020-06-09] MEDS: HYDROmorphone HCL INJ (*CRX) 1 MG/ML SYR IV PUSH ×4 (02:17→15:04)
--- NOTE | 2020-06-09 17:49 | PM.IMPN ---
Subjective Date/time seen: 06/09/20 17:49 Objective Data Vital Signs Vital Signs: Vital Signs - 24 hr 06/08/20 22:00 Temperature 98 F Pulse Rate 72 Respiratory Rate 20 Blood Pressure 153/72 H Pulse Oximetry 81 L Meds/Results Medications: Active Medications Generic Name Dose Route Start Last Admin Trade Name Freq PRN Reason Stop Dose Admin Artificial Tears 2 drop 06/07/20 18:00 06/09/20 05:30 Artificial Tears Op Soln 15 Ml Bottle EACH EYE 2 drop Q12H HANSEL Administration Bisacodyl 10 mg 06/08/20 09:00 06/09/20 08:21 Bisacodyl 10 Mg Suppository RECTAL Not Given QAM HANSEL Hydromorphone HCl 1 mg 06/07/20 13:56 06/09/20 15:04 Hydromorphone Hcl Inj (*Crx) 1 Mg/Ml Syr IV PUSH 1 mg Q2H PRN Administration Pain Lorazepam 1 mg 06/07/20 13:58 Lorazepam Inj (*Crx) 2 Mg/Ml Vial IV PUSH Q2H PRN RESTLESSNESS Prochlorperazine Edisylate 10 mg 06/07/20 14:02 Prochlorperazine Edisylate 10 Mg/2 Ml Vial IM Q6H PRN Nausea And Vomiting
[2020-06-09 20:00] VITALS: BP 121/61; PULSE 61; RESP 22; TEMP 36.5; O2SAT 92
[2020-06-09] MEDS: HYDROmorphone HCL INJ (*CRX) 2 MG/ML VIAL IV PUSH (20:29)
[2020-06-10] MEDS: HYDROmorphone HCL INJ (*CRX) 2 MG/ML VIAL IV PUSH ×2 (07:28→11:16)
[2020-06-10 08:00] VITALS: BP 112/82; RESP 18; TEMP 36.7
[2020-06-10] MEDS: LORazepam (*CRX) 2 MG/ML 30 ML ORAL CONCENTRATE 1 MG PO (14:04)
[2020-06-10] MEDS: HYDROmorphone HCL INJ (*CRX) 2 MG/ML VIAL SUB-Q (14:04)
--- NOTE | 2020-06-10 16:56 | PC.NURSE ---
Pt at 1555. IV line removed, however dialysis port and peritoneal dialysis catheter were unable to be removed, due to too much resistance. notified of lines remaining. Pt's family aware that the dialysis lines will remain.
--- NOTE | 2020-06-10 18:14 | PM.DDS ---
Discharge Sum: Prov Provider Primary care physician: Geo Najera, Admitting provider: Mervin Wiley MD Discharge Sum: Diag Contributing Factors (1) End stage renal disease: (2) Encephalopathy: (3) Calciphylaxis: (4) Chronic atrial fibrillation, unspecified: Discharge Sum: Summary Date and Time Date of admission: 06/07/20 13:31 Summary Details: Admitted due to increased confusion and agitation. ESRD with recent dx of calciphylaxis and inability to tolerate HD prompted family to choose hospice care. Medications were titrated to comfort. Patient peacefully. Additional Data Attending physician: Mervin Wiley MD
== END 2020-06-10 15:55 | disposition expired | DRG 951 ==
LOC: ANHIMU 13:35 → ANH3MEDSUR 14:39
PROVIDERS: Admitting Provider Internal Medicine; PCP Internal Medicine; Visit Provider Internal Medicine
DX: Z51.5 Encounter for palliative care (principal); N18.6 End stage renal disease; I12.0 Hypertensive chronic kidney disease with stage 5 chronic kidney disease or end stage renal disease; G93.49 Other encephalopathy; I48.20 Chronic atrial fibrillation, unspecified; E83.59 Other disorders of calcium metabolism; F10.20 Alcohol dependence, uncomplicated; G60.9 Hereditary and idiopathic neuropathy, unspecified; I73.9 Peripheral vascular disease, unspecified; M10.9 Gout, unspecified; Z99.2 Dependence on renal dialysis; Z87.891 Personal history of nicotine dependence
CPT/HCPCS: A9270; J1170